=== PATIENT | male | born 1985 | race Caucasian/White ===

== ENCOUNTER 2016-09-07 21:27 | Emergency (ER) | payer MEDICAID ==
[2016-09-07 21:28] VITALS: BMI 19.0
[2016-09-07 21:41] VITALS: BP 129/75; PULSE 64; RESP 14; TEMP 98.9; O2SAT 98
--- NOTE | 2016-09-07 22:12 | C.PDOC ---
History Of Present Illness A 31 y/o M c/o white, white discharge on the glans penis since yesterday. States that partner was recently diagnosed with yeast infection. Denies penile discharge, lesions, dysuria, fever, chills, or any other complaints. Time Seen by Provider: 09/07/16 21:46 Chief Complaint (Nursing): Male Genitourinary History Per: Patient History/Exam Limitations: no limitations Onset/Duration Of Symptoms: Days Current Symptoms Are (Timing): Still Present Severity: Mild Associated Symptoms: denies: Fever Recent travel outside of the [place]: No Additional History Per: Patient Past Medical History Reviewed: Historical Data, Nursing Documentation, Vital Signs Vital Signs: Last Vital Signs Temp 98.9 F 09/07/16 21:39 Pulse 64 09/07/16 21:39 Resp 14 09/07/16 21:39 BP 129/75 09/07/16 21:39 Pulse Ox 98 09/07/16 23:58 Family History: States: Unknown Family Hx - Social History Hx Tobacco Use: No Hx Alcohol Use: No Hx Substance Use: No - Immunization History Hx Tetanus Toxoid Vaccination: No Hx Influenza Vaccination: No Hx Pneumococcal Vaccination: No Review Of Systems Constitutional: Negative for: Fever, Chills Genitourinary: Positive for: Other (White discharge on the glans penis). Negative for: Dysuria, Penile Discharge Skin: Negative for: Lesions Physical Exam - Physical Exam Appears: Non-toxic, No Acute Distress Skin: Warm, Dry Head: Atraumatic, Normacephalic Eye(s): bilateral: Normal Inspection Gastrointestinal/Abdominal: Normal Exam, Soft, No Tenderness Male Genital: No Testicular Swelling, No Scrotal Swelling (No tenderness), No Circumcised, Other (White exudates on the glans penis. No discharge, or lesions. ) Neurological/Psych: Oriented x3 (Awake and alert) ED Course And Treatment O2 Sat by Pulse Oximetry: 98 (RA) Pulse Ox Interpretation: Normal Progress Note: Impression: A 31 y/o M c/o white, thick discharge on the glend penis since yesterday. Plans: Reassess. Patient is in no acute distress at this time. Pt was instructed to follow up with PMD within 1-2 days for further evaluation. Disposition Counseled Patient/Family Regarding: Diagnosis, Need For Followup, Rx Given - Disposition Disposition: HOME/ ROUTINE Disposition Time: 22:09 Condition: STABLE Additional Instructions: Please follow up with PMD Apply cream ta area Follow up with PMD Return to ER if worse Prescriptions: Clotrimazole 1% Cream [Lotrimin 1%] 1 appl TP BID #1 tube Instructions: Balanitis (ED) Print Language: SWEDISH - Clinical Impression Clinical Impression: Candidal balanitis - Scribe Statement The provider has reviewed the documentation as recorded by the Gauravibdennys rasmussen All medical record entries made by the Gauravibdennys were at my direction and personally dictated by me. I have reviewed the chart and agree that the record accurately reflects my personal performance of the history, physical exam, medical decision making, and the department course for this patient. I have also personally directed, reviewed, and agree with the discharge instructions and disposition.
== END 2016-09-07 22:15 | disposition home or self-care (01) ==
LOC: C.ER 21:27
DX: B37.42 Candidal balanitis (principal)

== ENCOUNTER 2016-10-09 18:02 | Emergency (ER) | payer MEDICAID ==
[2016-10-09 18:03] VITALS: BMI 19.0
[2016-10-09 18:10] VITALS: BP 137/80; PULSE 72; RESP 16; TEMP 98.4; O2SAT 100
--- NOTE | 2016-10-09 18:47 | C.PDOC ---
History Of Present Illness 31 year old male presents to the ED for evaluation of "bumps" to the calvin of the glans penis. Patient notes being seen in the ED previously for butch infection and used a cream with improvement and then began to notice the "bumps. " He denies penile discharge, rash, dysuria, or pain. Time Seen by Provider: 10/09/16 18:37 Chief Complaint (Nursing): Abnormal Skin Integrity History Per: Patient History/Exam Limitations: no limitations Onset/Duration Of Symptoms: Unknown Current Symptoms Are (Timing): Still Present Quality Of Symptoms: denies: Painful, Itching, Swollen, Draining Recent travel outside of the [place]: No Past Medical History Reviewed: Historical Data, Nursing Documentation, Vital Signs Vital Signs: Last Vital Signs Temp 98.4 F 10/09/16 18:09 Pulse 72 10/09/16 18:09 Resp 16 10/09/16 18:09 BP 137/80 10/09/16 18:09 Pulse Ox 100 10/09/16 21:00 Family History: States: Unknown Family Hx - Social History Hx Tobacco Use: No Hx Alcohol Use: Yes Hx Substance Use: No - Immunization History Hx Tetanus Toxoid Vaccination: No Hx Influenza Vaccination: No Hx Pneumococcal Vaccination: No Review Of Systems Constitutional: Negative for: Fever, Chills Genitourinary: Positive for: Other ("bumps" to). Negative for: Dysuria, Hematuria, Penile Discharge, Scrotal Pain, Rash, Penile Pain Skin: Negative for: Rash Physical Exam - Physical Exam Appears: Non-toxic, No Acute Distress Skin: Warm, Dry Head: Atraumatic Eye(s): bilateral: Normal Inspection, EOMI Oral Mucosa: Moist Chest: Symmetrical, No Deformity Male Genital: Normal Inspection, No Testicular Tenderness, No Testicular Swelling, No Inguinal Tenderness, No Inguinal Swelling, No Scrotal Swelling, Other (papules to calvin of glans penis ) Extremity: Normal ROM, No Tenderness Neurological/Psych: Oriented x3, Normal Speech, Normal Cognition ED Course And Treatment O2 Sat by Pulse Oximetry: 100 (room air ) Progress Note: Patient was reasssured regarding the papules and instructed to follow up with urologist if concerns persist. Disposition - Disposition Referrals: Meenakshi Breen MD [Staff Provider] - Disposition: HOME/ ROUTINE Disposition Time: 18:45 Condition: STABLE Additional Instructions: Follow up with Urologist within 1-2 days. Return to Ed if feel worse. Forms: [facility] (Bruneian), Gen Discharge Inst Belarusian - Clinical Impression Clinical Impression: General medical exam - Scribe Statement The provider has reviewed the documentation as recorded by the Scribe Telma Joy All medical record entries made by the Gauravibe were at my direction and personally dictated by me. I have reviewed the chart and agree that the record accurately reflects my personal performance of the history, physical exam, medical decision making, and the department course for this patient. I have also personally directed, reviewed, and agree with the discharge instructions and disposition.
== END 2016-10-09 18:56 | disposition home or self-care (01) ==
LOC: C.ER 18:02
DX: Z00.00 Encounter for general adult medical examination without abnormal findings (principal)

== ENCOUNTER 2017-03-27 10:12 | Emergency (ER) | payer MEDICAID ==
[2017-03-27 10:14] VITALS: BMI 19.0
[2017-03-27 10:25] VITALS: RESP 16; TEMP 98.7
--- NOTE | 2017-03-27 11:13 | C.PDOC ---
History Of Present Illness 31 yo male c/o left sided neck pain since Thursday. Pt notes that on Thursday he was at work, standing on boxes, and fell backwards. He felt well at the time and finished working but the next day the pain started. Notes he feels the pain only with certain movements. No Loc. Denies headache, n/v, change in sensation, sob, back pain or weakness. Did not take any medication for pain. 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) History/Exam Limitations: no limitations Onset/Duration Of Symptoms: Days Current Symptoms Are (Timing): Still Present Past Medical History Vital Signs: Last Vital Signs Temp 98.7 F 03/27/17 10:22 Pulse 69 03/27/17 11:40 Resp 16 03/27/17 11:40 BP 105/67 03/27/17 11:40 Pulse Ox 99 03/27/17 11:40 Family History: States: Unknown Family Hx - Social History Hx Tobacco Use: No Hx Alcohol Use: Yes Hx Substance Use: No - Immunization History Hx Tetanus Toxoid Vaccination: No Hx Influenza Vaccination: No Hx Pneumococcal Vaccination: No Review Of Systems Except As Marked, All Systems Reviewed And Found Negative. Musculoskeletal: Positive for: Neck Pain Physical Exam - Physical Exam Appears: Well, Non-toxic, No Acute Distress Skin: Normal Color, Warm, Dry Head: Atraumatic, Normacephalic Eye(s): bilateral: Normal Inspection, EOMI Nose: Normal Oral Mucosa: Moist Neck: Normal ROM, No Midline Cervical Tenderness, Paracervical Tenderness (left paracervical tenderness with mild spasm) Chest: Symmetrical Cardiovascular: Rhythm Regular Respiratory: Normal Breath Sounds, No Accessory Muscle Use Back: Normal Inspection Extremity: Normal ROM, Capillary Refill (< 2 sec) Pulses: Left Radial: Normal, Right Radial: Normal Neurological/Psych: Oriented x3, Normal Speech, Normal Motor (5/5 against resistance), Normal Sensation Gait: Steady ED Course And Treatment O2 Sat by Pulse Oximetry: 100 - Other Rad Cervical XR X-Ray: Viewed By Me, Read By Radiologist Interpretation: PROCEDURE: Cervical spine 03/27/2017. History: Trauma. AP and lateral views of the cervical spine performed. Note the examination is somewhat limited due to the lack of a on open-mouth view. HISTORY: Pain. COMPARISON: None. FINDINGS: BONES: No acute compression fractures no retropulsed fragments within the limitation of this exam. . There is straightening of the normal cervical lordosis which could be due to patient positioning however underlying element of spasm may contribute. DISC SPACES: Disc space heights maintained. No significant degenerative spondylosis. SOFT TISSUES: Normal. No prevertebral soft tissue swelling. OTHER FINDINGS: None. IMPRESSION: Unremarkable limited two-view cervical spine as above Progress Note: Pt was offered medication, refused. Instructed Rice and follow up with PMD in 1-2 days. Disposition - Disposition Disposition: HOME/ ROUTINE Disposition Time: 11:17 Condition: STABLE Additional Instructions: Vaya a ortega mdico o la clnica en 2-5 worthy sin falta, para mas evaluacin. Campanillas los medicamentos michelle indicado. Volver a la susie de emergencia en cualquier momento si los sntomas persisten o empeoran. Prescriptions: Acetaminophen [Tylenol 325mg tab] 650 mg PO Q4 PRN #20 tab PRN Reason: Pain, Mild (1-3) Cyclobenzaprine [Cyclobenzaprine HCl] 10 mg PO TID #20 tab Instructions: Cervical Strain (DC) Forms: [employer] (Egyptian) Print Language: MONTENEGRIN - Clinical Impression Clinical Impression: Cervical strain
--- NOTE | 2017-03-27 11:24 | RAD ---
PROCEDURE: Cervical spine 03/27/2017. History: Trauma. AP and lateral views of the cervical spine performed. Note the examination is somewhat limited due to the lack of a on open-mouth view. HISTORY: Pain. COMPARISON: None. FINDINGS: BONES: No acute compression fractures no retropulsed fragments within the limitation of this exam. . There is straightening of the normal cervical lordosis which could be due to patient positioning however underlying element of spasm may contribute. DISC SPACES: Disc space heights maintained. No significant degenerative spondylosis SOFT TISSUES: Normal. No prevertebral soft tissue swelling. OTHER FINDINGS: None. IMPRESSION: Unremarkable limited two-view cervical spine as above
[2017-03-27 11:41] VITALS: BP 105/67; PULSE 69
[2017-03-27 14:26] VITALS: O2SAT 100
== END 2017-03-27 11:40 | disposition home or self-care (01) ==
LOC: C.ER 10:12
DX: S16.1XXA Strain of muscle, fascia and tendon at neck level, initial encounter (principal); W17.89XA Other fall from one level to another, initial encounter; Y99.0 Civilian activity done for income or pay

== ENCOUNTER 2017-06-09 09:26 | Emergency (ER) | payer MEDICAID ==
[2017-06-09 09:26] VITALS: BMI 19.0
[2017-06-09 09:55] VITALS: RESP 18
--- NOTE | 2017-06-09 12:08 | C.PDOC ---
History Of Present Illness 32 y/o male presents to the ED complaining of 3 day history of headaches, muscle aches, congestion, and subjective fever. Patient states when fever comes his eyes become red, and this is typical for him when he has fevers. Otherwise he denies any chest pain or SOB. Time Seen by Provider: 06/09/17 10:26 Chief Complaint (Nursing): Cough, Cold, Congestion History Per: Patient History/Exam Limitations: no limitations Onset/Duration Of Symptoms: Days Current Symptoms Are (Timing): Still Present Past Medical History Reviewed: Historical Data, Nursing Documentation, Vital Signs Vital Signs: Last Vital Signs Temp 98.5 F 06/09/17 12:18 Pulse 68 06/09/17 12:18 Resp 18 06/09/17 12:18 BP 126/82 06/09/17 12:18 Pulse Ox 99 06/09/17 12:18 - Medical History PMH: No Chronic Diseases Other Surgeries: Right clavicle surgery Family History: States: Unknown Family Hx - Social History Hx Tobacco Use: No Hx Alcohol Use: Yes Hx Substance Use: No - Immunization History Hx Tetanus Toxoid Vaccination: No Hx Influenza Vaccination: No Hx Pneumococcal Vaccination: No Review Of Systems Except As Marked, All Systems Reviewed And Found Negative. Constitutional: Positive for: Fever, Other (myalgias) ENT: Positive for: Nose Congestion Cardiovascular: Negative for: Chest Pain Respiratory: Negative for: Shortness of Breath Neurological: Positive for: Headache Physical Exam - Physical Exam Appears: Non-toxic, No Acute Distress Skin: Normal Color, Warm, Dry Head: Atraumatic, Normacephalic Eye(s): bilateral: Normal Inspection (with no injection noted), PERRL, EOMI Nose: Discharge (mild congestion) Throat: Normal, No Erythema, No Exudate Neck: Normal ROM, Supple Cardiovascular: Rhythm Regular, No Murmur Respiratory: Normal Breath Sounds, No Rales, No Rhonchi, No Wheezing Neurological/Psych: Oriented x3, Normal Speech ED Course And Treatment O2 Sat by Pulse Oximetry: 100 (RA) Pulse Ox Interpretation: Normal Medical Decision Making Medical Decision Making: Impression: 32 y/o with flu-like symptoms Time: 10:45 Initial Plan: --Flu swab Flu swab negative. Counseled regarding diagnosis of URI. Patient is stable for d/c home Disposition - Disposition Disposition: HOME/ ROUTINE Disposition Time: 12:06 Condition: GOOD Additional Instructions: Follow up with your PMD within 1-2 days. Return to ED if feel worse. 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 - Scribe Statement The provider has reviewed the documentation as recorded by the Scribe (Ana Valencia) All medical record entries made by the Scribe were at my direction and personally dictated by me. I have reviewed the chart and agree that the record accurately reflects my personal performance of the history, physical exam, medical decision making, and the department course for this patient. I have also personally directed, reviewed, and agree with the discharge instructions and disposition.
[2017-06-09 12:19] VITALS: BP 126/82; PULSE 68; TEMP 98.5
[2017-06-09 14:35] VITALS: O2SAT 100
== END 2017-06-09 12:19 | disposition home or self-care (01) ==
LOC: C.ER 09:26
DX: J06.9 Acute upper respiratory infection, unspecified (principal)

== ENCOUNTER 2017-06-11 12:28 | Emergency (ER) | payer MEDICAID ==
[2017-06-11 12:28] VITALS: BMI 19.0
[2017-06-11 12:34] VITALS: TEMP 98.4
[2017-06-11 13:38] LABS: EOS # 0.1 K/uL (0.0-0.7); LYMPH # 0.4 K/uL (1.0-4.3); MONO # 0.6 K/uL (0.0-0.8); NEUT # 1.9 K/uL (1.8-7.0); RED CELL DISTRIBUTION WIDTH 13.8 % (11.5-14.5)
[2017-06-11 13:45] LABS: URINE BILIRUBIN NEGATIVE (NEGATIVE); URINE BLOOD NEGATIVE (NEGATIVE); URINE CLARITY Hazy (Clear); URINE COLOR Yellow (YELLOW); URINE GLUCOSE (UA) NORMAL (Normal); URINE LEUKOCYTE ESTERASE NEG Leu/uL (Negative); URINE PROTEIN NEGATIVE (NEGATIVE); URINE UROBILINOGEN NORMAL mg/dL (0.2-1.0)
[2017-06-11 13:52] LABS: ALB/GLOB RATIO 1.2 (1.0-2.1); ALBUMIN 4.5 g/dL (3.5-5.0); CALCIUM 9.2 mg/dl (8.6-10.4); GFR AFRICAN-AMERICAN > 60; GFR NON-AFRICAN AMERICAN > 60
[2017-06-11 14:03] LABS: BASO % 0.4 % (0.0-2.0); EOS % 2.4 % (0.0-4.0); HEMOGLOBIN 15.6 g/dL (12.0-18.0); LYMPH % 14.1 % (20.0-40.0); MEAN CELL VOLUME 78.1 fL (80.0-94.0); MEAN CORPUSCULAR HEMOGLOBIN 26.8 pg (27.0-31.0); MEAN CORPUSCULAR HGB CONC 34.3 g/dL (33.0-37.0); MEAN PLATELET VOLUME 10.2 fL (7.2-11.7); MONO % 20.8 % (0.0-10.0); NEUT % 62.3 % (50.0-75.0); NRBC % 0.4 % (0.0-2.0); RBC 5.83 Mil/uL (4.40-5.90); WHITE BLOOD COUNT 3.1 K/uL (4.8-10.8)
[2017-06-11 14:04] LABS: PLATELET COUNT 109 K/uL (130-400)
[2017-06-11 14:16] LABS: ALT/SGPT 30 U/L (21-72); AST/SGOT 37 U/L (17-59); BLOOD UREA NITROGEN 15 mg/dL (9-20)
[2017-06-11 14:19] LABS: BANDS 13 % (0-2); EOSINOPHIL 1 % (0-4); LYMPHOCYTE 16 % (20-40); MONOCYTE 18 % (0-10); NEUTROPHIL 51 % (50-75); OVALOCYTES SLIGHT; PLATELET ESTIMATE SLIGHTLY DECREASED (NORMAL); REACTIVE LYMPHOCYTES 1 % (0-0); TOTAL CELLS COUNTED 100
--- NOTE | 2017-06-11 15:27 | C.PDOC ---
History Of Present Illness Pt c/o b/l lower back pain. 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 barrier Onset/Duration Of Symptoms: Days (few) Current Symptoms Are (Timing): Still Present Quality Of Discomfort: "Pain" Severity: Mild Associated Symptoms: None Exacerbating Factor(s): Movement Additional History Per: Prior Records Past Medical History Reviewed: Historical Data, Nursing Documentation, Vital Signs Vital Signs: Last Vital Signs Temp 98.4 F 06/11/17 12:32 Pulse 80 06/11/17 12:32 Resp 20 06/11/17 12:32 BP 121/76 06/11/17 12:32 Pulse Ox 100 06/11/17 15:30 - Medical History PMH: No Chronic Diseases Surgical History: No Surg Hx Family History: States: Unknown Family Hx - Social History Hx Tobacco Use: No Hx Alcohol Use: Yes Hx Substance Use: No - Immunization History Hx Tetanus Toxoid Vaccination: No Hx Influenza Vaccination: No Hx Pneumococcal Vaccination: No Review Of Systems Except As Marked, All Systems Reviewed And Found Negative. Constitutional: Negative for: Fever, Weakness ENT: Negative for: Throat Pain Cardiovascular: Negative for: Chest Pain Respiratory: Negative for: Cough, Shortness of Breath Gastrointestinal: Negative for: Vomiting, Abdominal Pain, Diarrhea Genitourinary: Negative for: Dysuria, Incontinence, Scrotal Pain Musculoskeletal: Positive for: Back Pain. Negative for: Neck Pain Skin: Negative for: Rash Neurological: Negative for: Weakness, Numbness, Seizures, Altered Mental Status Physical Exam - Physical Exam Appears: Non-toxic, No Acute Distress Skin: Normal Color, Warm, Dry, No Rash Head: Atraumatic, Normacephalic Eye(s): bilateral: Normal Inspection, PERRL, EOMI Oral Mucosa: Moist Neck: Normal ROM, Supple Cardiovascular: Rhythm Regular Respiratory: Normal Breath Sounds, No Accessory Muscle Use Gastrointestinal/Abdominal: Soft, No Tenderness Back: No CVA Tenderness, No Vertebral Tenderness Extremity: Normal ROM Neurological/Psych: Oriented x3, Normal Speech, Normal Cognition, Normal Motor, Normal Sensation ED Course And Treatment - Laboratory Results Result Diagrams: 06/11/17 13:29 06/11/17 13:29 Interpretation Of Abnormal: Elevated Band % O2 Sat by Pulse Oximetry: 100 Pulse Ox Interpretation: Normal Progress Note: Pt states that he feels good and wants to leave. Back pain resolved with Tylenol. No fever. Pt is well appearing. He was informed about his abnormal CBC results and he states that he will follow up with his primary doctor for further evaluation. Reassessment Condition: Improved Disposition Counseled Patient/Family Regarding: Studies Performed, Diagnosis, Need For Followup - Disposition Referrals: Alexandria Sinha MD [Medical Doctor] - Disposition: HOME/ ROUTINE Disposition Time: 15:29 Condition: IMPROVED Additional Instructions: Follow up with your doctor within 1-2 days for further evaluation and treatment. Return to the ER if you develop fever, chills, lethargy, signs of infection, worsening of symptoms or if you have any other concerns. Instructions: Low Back Pain (DC) Forms: [facility] (Namibian) Print Language: NORTHERN IRISH - Clinical Impression Clinical Impression: Low back pain, Bandemia without diagnosis of specific infection
[2017-06-11 15:45] VITALS: BP 132/85; PULSE 62; RESP 16; O2SAT 99
== END 2017-06-11 15:45 | disposition home or self-care (01) ==
LOC: C.ER 12:28
DX: M54.5 Low back pain (principal); D72.825 Bandemia

== ENCOUNTER 2017-09-14 08:54 | Emergency (ER) | payer MEDICAID ==
[2017-09-14 08:55] VITALS: BMI 19.0
[2017-09-14 09:11] VITALS: BP 135/86; PULSE 63; RESP 20; TEMP 98.1; O2SAT 100
--- NOTE | 2017-09-14 09:42 | C.PDOC ---
History Of Present Illness 32 y/o male presents to the ER complaining of left sided throat pain with swallowing which has been present since yesterday. Patient states that he ate some " hard nuts" and thinks they may have caused his symptoms. Patient is also complaining of white spots on the head of his penis which he noticed 2 days ago. Patient denies fever, cough, runny nose, dysuria/hematuria, penile discharge. Time Seen by Provider: 09/14/17 09:13 Chief Complaint (Nursing): Male Genitourinary History Per: Patient History/Exam Limitations: no limitations Onset/Duration Of Symptoms: Days Current Symptoms Are (Timing): Still Present Severity: Moderate Past Medical History Reviewed: Historical Data, Nursing Documentation, Vital Signs Vital Signs: Last Vital Signs Temp 98.1 F 09/14/17 09:09 Pulse 63 09/14/17 09:09 Resp 20 09/14/17 09:09 BP 135/86 09/14/17 09:09 Pulse Ox 100 09/14/17 13:24 - Medical History PMH: No Chronic Diseases Other Surgeries: Hx of surgeries Family History: States: No Known Family Hx - Social History Hx Tobacco Use: No Hx Alcohol Use: Yes Hx Substance Use: No - Immunization History Hx Tetanus Toxoid Vaccination: No Hx Influenza Vaccination: No Hx Pneumococcal Vaccination: No Review Of Systems Constitutional: Negative for: Fever, Chills ENT: Positive for: Throat Pain (left-sided throat pain). Negative for: Nose Discharge, Nose Congestion Respiratory: Negative for: Cough, Shortness of Breath Gastrointestinal: Negative for: Nausea, Vomiting, Abdominal Pain, Diarrhea Genitourinary: Positive for: Other (spots on head of penis). Negative for: Dysuria, Penile Discharge Physical Exam - Physical Exam Appears: Well, Non-toxic, No Acute Distress Skin: Normal Color, Warm, Dry, No Rash Head: Atraumatic Eye(s): bilateral: Normal Inspection Oral Mucosa: Moist Throat: Normal, No Erythema, No Exudate, No Drooling, Other (no tonsil swelling , no foreign bodies) Neck: Supple Lymphatic: No Adenopathy (lymphadenopathy ) Cardiovascular: Rhythm Regular Respiratory: Normal Breath Sounds, No Rales, No Rhonchi, No Wheezing Male Genital: Other (small white papules on glands of penis (non vesicular) , no penile discharge) Neurological/Psych: Oriented x3 ED Course And Treatment O2 Sat by Pulse Oximetry: 100 (RA) Pulse Ox Interpretation: Normal - Other Rad X-Ray- Soft Tissue Neck X-Ray: Viewed By Me, Read By Radiologist Interpretation: Date of service: 09/14/2017. PROCEDURE: Radiographs of neck soft tissues. HISTORY: THROAT PAIN R/O FB. COMPARISON: None available. TECHNIQUE: Frontal and lateral radiographs of the neck soft tissues. FINDINGS : No radiopaque foreign body seen in the neck. The epiglottis is within normal limits. Metallic piercing is present below the lower lip. Prior right clavicular plate and screw fixation is evident. IMPRESSION: No radiopaque foreign body. Progress Note: Xray of soft tissue neck ordered and reviewed, negative for foreign bodies. Patient given Rxs for tylenol and viscous lidocaine. He was instructed to follow up with ENT if symptoms persist, and with urology for further eval of his penile lesions. Patient understands he should return to ED if symptoms worsen. Disposition Counseled Patient/Family Regarding: Diagnosis, Need For Followup, Rx Given - Disposition Referrals: Alexandria Sinha MD [Medical Doctor] - Iain Parmar MD [Staff Provider] - Rosendo Chavez MD [Staff Provider] - Disposition: HOME/ ROUTINE Disposition Time: 10:05 Condition: STABLE Prescriptions: Acetaminophen [Tylenol 325mg tab] 650 mg PO Q6 PRN #30 tab PRN Reason: pain/fever Lidocaine 2% Viscous 15 ml MM Q4 PRN #1 bottle PRN Reason: Pain Forms: [facility] (Korean), General Discharge Instructions Print Language: TELUGU - Clinical Impression Clinical Impression: Foreign body sensation in throat, Pearly penile papules - Scribe Statement The provider has reviewed the documentation as recorded by the Scribe Lamont Pena Provider Attestation: All medical record entries made by the Scribe were at my direction and personally dictated by me. I have reviewed the chart and agree that the record accurately reflects my personal performance of the history, physical exam, medical decision making, and the department course for this patient. I have also personally directed, reviewed, and agree with the discharge instructions and disposition.
--- NOTE | 2017-09-14 13:21 | RAD ---
Date of service: 09/14/2017 PROCEDURE: Radiographs of neck soft tissues HISTORY: THROAT PAIN R/O FB COMPARISON: None available. TECHNIQUE: Frontal and lateral radiographs of the neck soft tissues. FINDINGS: No radiopaque foreign body seen in the neck. The epiglottis is within normal limits. Metallic piercing is present below the lower lip. Prior right clavicular plate and screw fixation is evident. IMPRESSION: No radiopaque foreign body.
== END 2017-09-14 10:14 | disposition home or self-care (01) ==
LOC: C.ER 08:54
DX: R09.89 Other specified symptoms and signs involving the circulatory and respiratory systems (principal); N48.9 Disorder of penis, unspecified

== ENCOUNTER 2018-01-18 09:22 | Emergency (ER) | payer MEDICAID ==
[2018-01-18 09:22] VITALS: BMI 19.0
[2018-01-18 09:35] VITALS: RESP 20
--- NOTE | 2018-01-18 10:56 | C.PDOC ---
History Of Present Illness 32 year old male otherwise well presents to the ED for evaluation of generalized body aches, malaise, cough, and subjective fever for 2-3 days. Patient reports he was febrile mainly 1 day ago. He notes allergies to either Aspirin or Ibuprofen, patient is unsure. The patient admits he has not taken medications for his current symptoms. Denies nasal congestion, nausea, vomiting, diarrhea, and any other associated symptoms. Time Seen by Provider: 01/18/18 09:37 Chief Complaint (Nursing): Fever History Per: Patient History/Exam Limitations: no limitations Onset/Duration Of Symptoms: Days Current Symptoms Are (Timing): Still Present Past Medical History Reviewed: Historical Data, Nursing Documentation, Vital Signs Vital Signs: Last Vital Signs Temp 98.8 F 01/18/18 09:35 Pulse 71 01/18/18 09:35 Resp 20 01/18/18 09:35 BP 124/77 01/18/18 09:35 Pulse Ox 99 01/18/18 09:35 Family History: States: Unknown Family Hx - Social History Hx Tobacco Use: No Hx Alcohol Use: Yes Hx Substance Use: No - Immunization History Hx Tetanus Toxoid Vaccination: No Hx Influenza Vaccination: No Hx Pneumococcal Vaccination: No Review Of Systems Constitutional: Positive for: Fever (subjective. ), Weakness, Malaise (generalized. ) ENT: Negative for: Nose Congestion Respiratory: Positive for: Cough Gastrointestinal: Negative for: Nausea, Vomiting, Diarrhea Physical Exam - Physical Exam Appears: Non-toxic Skin: Warm, Dry Head: Atraumatic, Normacephalic Eye(s): bilateral: PERRL Oral Mucosa: Moist Throat: Normal, No Erythema, No Exudate Neck: Normal ROM, Supple Respiratory: Normal Breath Sounds, No Rales, No Rhonchi, No Wheezing Gastrointestinal/Abdominal: Normal Exam, Soft, No Tenderness Neurological/Psych: Oriented x3, Normal Speech, Normal Cognition ED Course And Treatment O2 Sat by Pulse Oximetry: 99 (RA) Pulse Ox Interpretation: Normal Medical Decision Making Medical Decision Making: Plan: -Tylenol Patient feeling better after Tylenol, will d/c home. Disposition Counseled Patient/Family Regarding: Diagnosis, Need For Followup - Disposition Disposition: HOME/ ROUTINE Disposition Time: 11:07 Condition: STABLE Additional Instructions: nely Solares limon, miel. Tylenol para la fiebre. Instructions: Viral Syndrome (DC) Forms: Gen Discharge Inst Ukrainian, [facility] (Ukrainian), Work Excuse - POA Present On Arrival: None - Clinical Impression Clinical Impression: Influenza-like illness - Scribe Statement The provider has reviewed the documentation as recorded by the Scribe (Rosario Parada) Provider Attestation: All medical record entries made by the Scribe were at my direction and personally dictated by me. I have reviewed the chart and agree that the record accurately reflects my personal performance of the history, physical exam, medical decision making, and the department course for this patient. I have also personally directed, reviewed, and agree with the discharge instructions and disposition.
[2018-01-18 11:17] VITALS: BP 127/79; PULSE 73; TEMP 98.5; O2SAT 98
== END 2018-01-18 11:17 | disposition home or self-care (01) ==
LOC: C.ER 09:22
DX: J11.1 Influenza due to unidentified influenza virus with other respiratory manifestations (principal)